=== PATIENT | male | born 2000 | race Caucasian/White ===

== ENCOUNTER 2024-11-23 18:12 | Inpatient (IN) | payer OTHER, MEDICAID ==
[~2024-11-23] VITALS: Ht 172.7 cm; Wt 65.8 kg
[~2024-11-23 18:12] MED LIST: CHLO25CA10 MT; DICL100G46 TP; FOLI-43 PO; GABA-1180 PO; INSLIS SUBCUT; INSU100I28 SQ; MULT-230 MT; THIA100T72 PO
[2024-11-23 18:21] VITALS: O2SAT 98
[2024-11-23 19:03] LABS: BG DEOXYHEMOGLOBIN 6.7 % (0.0-5.0)
[2024-11-23] MEDS: FOLIC ACID 1 MG, THIAMINE HCL 100 MG, MVI, ADULT NO.1 10 ML in DEXTROSE 5% WATER 1,000 ML IV ONE (20:06)
[2024-11-23 20:28] LABS: BASOPHILS % 2.1 % (0.0-2.0); EOSINOPHILS % 0.3 % (0.0-5.0); HEMATOCRIT. 41.1 % (42.0-52.0); HEMOGLOBIN. 14.2 g/dL (14.0-18.0); LYMPHOCYTES % 35.5 % (20.0-50.0); MEAN PLATELET VOLUME 9.0 fl (7.4-10.4); MONOCYTES % 5.1 % (2.0-8.0); NEUTROPHILS % 57.0 % (40.0-76.0); PLATELET 303 x1000/uL (130-400); RED BLOOD CELL COUNT 4.43 mill/uL (4.7-6.1); RED CELL DISTRIBUTION WIDTH 14.9 % (11.6-14.6)
[2024-11-23 20:43] LABS: CREATININE 0.7 mg/dL (0.6-1.3)
[2024-11-23 20:44] LABS: UREA NITROGEN BLOOD 8 mg/dL (9-23)
[2024-11-23 20:45] LABS: ASPARTATE AMINOTRANSFERASE 464 IU/L (<34); BILIRUBIN DIRECT 3.4 mg/dL (<=3.0)
[2024-11-23 20:46] LABS: BILIRUBIN TOTAL 4.4 mg/dL (0.1-1.0); PROTEIN TOTAL 6.1 g/dL (6.0-8.3)
[2024-11-23 23:17] VITALS: BP 117/94; PULSE 92; RESP 17; TEMP 36.6; O2SAT 100
[2024-11-23 23:43] VITALS: BP 115/93; PULSE 92; RESP 13; TEMP 36.5848
[2024-11-24] VITALS: PULSE 83; RESP 20; O2SAT 100
[2024-11-24] MEDS ORDERED: DIPHENHYDRAMINE 50MG/ML VIAL IV PRN (01:30)
[2024-11-24] MEDS ORDERED: MAGNESIUM/ALUMINUM HYDROXIDE/SIMETHICONE 30ML UDC PO PRN (01:30)
[2024-11-24] MEDS ORDERED: ONDANSETRON HCL 4MG/2ML INJ IV PRN (01:30)
[2024-11-24] MEDS ORDERED: DEXTROSE 50% WATER 50ML SYRINGE IV PRN (01:30)
[2024-11-24] MEDS ORDERED: ACETAMINOPHEN 325MG TABLET PO PRN (01:30)
[2024-11-24] MEDS: SODIUM CHLORIDE 0.9% 1,000 ML IV SCH (02:34)
[2024-11-24] MEDS: MAGNESIUM 2 G PREMIX 50 ML IV NR (02:34)
[2024-11-24 04:00] VITALS: BP 102/75; PULSE 88; RESP 18; TEMP 36.4; O2SAT 96
[2024-11-24] MEDS: KCL 20MEQ/100ML PREMIX 100 ML IV SCH ×2 (04:30→10:24)
[2024-11-24] MEDS: ACETAMINOPHEN 325MG TABLET PO PRN (05:09)
[2024-11-24] MEDS: BLOOD SUGAR DIAGNOSTIC STRIP TEST SCH (06:49)
[2024-11-24] MEDS: SODIUM CHLORIDE 0.9% 3ML FLUSH IVF SCH (06:49)
[2024-11-24] MEDS: INSULIN LISPRO 100 UNITS/ML SUBCUT SCH (06:50)
[2024-11-24 08:00] VITALS: BP 119/87; PULSE 88; RESP 12; TEMP 36.7; O2SAT 100
[2024-11-24] MEDS: INSULIN GLARGINE 100 UNITS/ML SUBCUT SCH (10:31)
[2024-11-24 12:00] VITALS: BP 114/85; PULSE 87; RESP 13; TEMP 36.8; O2SAT 100
[2024-11-24] MEDS: KETOROLAC 30MG/ML VIAL IV PRN (15:15)
[2024-11-24 16:00] VITALS: BP 129/98; PULSE 91; RESP 17; TEMP 37.2; O2SAT 99
[2024-11-24] MEDS: GABAPENTIN 400MG CAPSULE PO SCH (16:56)
[2024-11-24 20:00] VITALS: BP 122/91; PULSE 92; RESP 18; TEMP 36.8; O2SAT 95
[2024-11-25] VITALS: BP 128/91; PULSE 80; RESP 19; TEMP 36.7; O2SAT 99
[2024-11-25 04:00] VITALS: BP 121/90; PULSE 89; RESP 14; TEMP 36.8; O2SAT 94
[2024-11-25 07:41] LABS: BASOPHILS % 1.3 % (0.0-2.0); EOSINOPHILS % 1.2 % (0.0-5.0); HEMATOCRIT. 35.1 % (42.0-52.0); HEMOGLOBIN. 11.9 g/dL (14.0-18.0); LYMPHOCYTES % 28.9 % (20.0-50.0); MEAN PLATELET VOLUME 9.7 fl (7.4-10.4); MONOCYTES % 3.4 % (2.0-8.0); NEUTROPHILS % 65.2 % (40.0-76.0); PLATELET 203 x1000/uL (130-400); RED BLOOD CELL COUNT 3.72 mill/uL (4.7-6.1); RED CELL DISTRIBUTION WIDTH 14.9 % (11.6-14.6)
[2024-11-25 08:00] VITALS: BP 120/97; PULSE 86; RESP 16; TEMP 36.9; O2SAT 99
[2024-11-25 08:03] LABS: CREATININE 0.7 mg/dL (0.6-1.3)
[2024-11-25 08:04] LABS: UREA NITROGEN BLOOD < 5 mg/dL (9-23)
[2024-11-25 08:06] LABS: PHOSPHORUS 2.5 mg/dL (2.5-4.9)
[2024-11-25 12:00] VITALS: BP 121/97; PULSE 80; RESP 12; TEMP 36.9; O2SAT 97
[2024-11-25] MEDS: MAGNESIUM 2 G PREMIX 50 ML IV SCH (12:30)
[2024-11-25 16:00] VITALS: BP 119/86; PULSE 83; RESP 19; TEMP 36.9; O2SAT 98
[2024-11-25 17:50] VITALS: BP 119/86; PULSE 83; RESP 19; TEMP 98.5
== END 2024-11-25 18:49 | disposition home or self-care (01) | DRG 241 ==
LOC: ER 18:12 → 3WST 20:50 → EDBEDREQ 21:15 → EDBEDREQTM 21:15 → ENRESERV 22:13
PROVIDERS: ADMIT Internal Medicine; ATTEND Internal Medicine
DX: K29.20 Alcoholic gastritis without bleeding (principal); E11.65 Type 2 diabetes mellitus with hyperglycemia; E87.6 Hypokalemia; R07.89 Other chest pain; M54.9 Dorsalgia, unspecified; F10.129 Alcohol abuse with intoxication, unspecified; Y90.8 Blood alcohol level of 240 mg/100 ml or more; Z79.4 Long term (current) use of insulin; Z83.3 Family history of diabetes mellitus; Z91.128 Patient's intentional underdosing of medication regimen for other reason
CPT/HCPCS: 36415; 71045; 80048; 80076; 80320; 82010; 82375; 82803; 82962; 83735; 84100; 85025; 93005; 99285; A4606; J1815; J1885; J3411; J3475; J3480; J3490; J7030; J7070; G0480